=== PATIENT | female | born 1940 ===

== ENCOUNTER 2019-01-09 04:45 | Day surgery (SDC) | payer OTHER ==
[~2019-01-09 04:45] MED LIST: ASPIR 8181 MG; CRESTOR20 MG PO; LEXAPRO5 MG PO; NEURONTIN600 MG; VASOTEC20 MG; XANAX PO; XANAX1 MG PO
[2019-01-09] MEDS ORDERED: ULTRACET PO (08:54)
[2019-01-09] MEDS ORDERED: MACROBID 100 M100 MG PO (08:54)
== END 2019-01-09 12:10 | disposition home or self-care (01) ==
LOC: CIR.AMB 04:45
DX: N81.5 Vaginal enterocele (principal); N81.6 Rectocele